=== PATIENT | female | born 1955 | race Caucasian/White ===

== ENCOUNTER 2018-01-11 00:27 | Emergency (ER) | payer SELFPAY ==
[2018-01-11 00:28] VITALS: BP 0/0
== END 2018-01-11 03:29 | disposition expired ==
LOC: EMS 00:29 → EDBD 00:29 → EMS 03:29
DX: I46.9 Cardiac arrest, cause unspecified (principal); T40.1X1A Poisoning by heroin, accidental (unintentional), initial encounter; Y92.89 Other specified places as the place of occurrence of the external cause
CPT/HCPCS: 99285